=== PATIENT | female | born 1960 | race Caucasian/White ===

== ENCOUNTER 2019-01-25 14:30 | Emergency (ER) | payer OTHER, SELFPAY ==
[~2019-01-25] VITALS: Ht 167.6 cm; Wt 67.6 kg
[2019-01-25 14:32] VITALS: BP 129/60
[2019-01-25] MEDS ORDERED: LIDOCAINE-MPF 1%, 5ML ONE (14:51)
[2019-01-25] MEDS ORDERED: LIDOCAINE 1%, 10ML INFIL ONE (15:00)
[2019-01-25] MEDS ORDERED: ACETAMINOPHEN 325 MG TABLET ONE (15:14)
[2019-01-25] MEDS ORDERED: ACETAMINOPHEN 325 MG TABLET PO ONE (15:30)
== END 2019-01-25 15:25 | disposition home or self-care (01) ==
LOC: ED 15:00
DX: L03.113 Cellulitis of right upper limb (principal); L02.511 Cutaneous abscess of right hand
CPT/HCPCS: 26010; 99283; J3490